=== PATIENT | male | born 1935 | race Two or more races ===

== ENCOUNTER → 2016-12-06 | Outpatient (CLI) | payer MEDICARE, OTHER ==
--- NOTE | 2016-12-06 14:31 | RADRPT ---
PROCEDURE: Bilateral knee x-ray CLINICAL INDICATION: Pain TECHNIQUE: AP and bilateral weightbearing images as well as a right and left lateral and right and left sunrise views of the knees were obtained. COMPARISON: None FINDINGS: There is moderate degenerative joint disease right knee and moderate to severe degenerative joint di sease of the left knee. There are no acute fractures or dislocations. The bony mineralization is n ormal without focal bony blastic or lytic lesions. There is mild lateral subluxation of the left pa tella. There is atherosclerotic vascular disease present. There is surgical clips present. IMPRESSION: 1. Moderate degenerative joint disease right knee and moderate to severe degenerate joint disease o f the left knee without evidence of acute fractures or dislocations. 2. Mild lateral subluxation of the patella. 3. No evidence of joint effusions. RPTAT:AAJJ Physician Moe Date Time Electronically viewed and signed by Physician Moe on 12/06/2016 14:31 /
== END | disposition home or self-care (01) ==
LOC: HKI 14:20
PROVIDERS: ATTEND Orthopaedic Surgery
DX: M17.0 Bilateral primary osteoarthritis of knee (principal); S80.212A Abrasion, left knee, initial encounter; M25.551 Pain in right hip; M25.552 Pain in left hip; W01.0XXA Fall on same level from slipping, tripping and stumbling without subsequent striking against object, initial encounter; Z91.81 History of falling
CPT/HCPCS: 20610; G0463; J7327